=== PATIENT | male | born 1965 | race Two or more races ===

== ENCOUNTER 2025-01-22 18:05 | Emergency (ER) | payer BC, SELFPAY ==
[~2025-01-22] VITALS: Ht 160 cm; Wt 79.0 kg
[2025-01-22 18:11] VITALS: PULSE 76; O2SAT 99
[2025-01-22 18:21] VITALS: BP 172/98; RESP 16; TEMP 36.7; O2SAT 99
== END 2025-01-22 19:56 | disposition home or self-care (01) ==
LOC: ER 18:05
DX: I10 Essential (primary) hypertension (principal); Z79.899 Other long term (current) drug therapy; Z98.890 Other specified postprocedural states
CPT/HCPCS: 99281